=== PATIENT | female | born 1950 | race Caucasian/White ===

== ENCOUNTER 2018-06-10 00:10 | Outpatient (CLI) | payer MEDICARE, OTHER, SELFPAY ==
--- NOTE | 2018-06-10 08:30 | DI.MAMMO_ITS ---
SYMPTOM/DIAGNOSIS: SCREENING, Z12.31, ANNUAL EXAM, Z00.00 MAMMOGRAMS: Mammograms were interpreted according to the usual protocol including computer analysis with CAD system, tomosynthesis and C view imaging. Comparison is made with exams from [id number]. The breasts are composed of scattered fibroglandular densities. No suspicious masses or suspicious microcalcifications are seen. There has been no significant change. IMPRESSION: Category 1B, negative mammogram. Routine screening is recommended. Mammograms were interpreted according to the usual protocol including computer analysis with CAD system, tomosynthesis and C view imaging. BI-RADS category B. There are scattered areas of fibroglandular density.
== END 2018-06-10 00:30 ==
PROVIDERS: PCP Nurse Practitioner Family; Visit Provider Nurse Practitioner Family
DX: Z12.31 Encounter for screening mammogram for malignant neoplasm of breast (principal)
CPT/HCPCS: 77063; 77067

== ENCOUNTER 2018-07-01 11:26 | Outpatient (REF) | payer MEDICARE, OTHER, SELFPAY ==
[2018-07-01 12:36] LABS: HCT 47.2 % (36.0-46.0); HGB 15.6 g/dL (12.0-15.5); Mean Corp. HGB Concentration 33.1 g/dL (32.0-36.0); Mean Corpuscular Hemoglobin 29.8 pg (27.0-33.0); Mean Corpuscular Volume 90.1 fL (80-95); Mean Platelet Volume 11.9 fL (8.0-11.0); Platelet Count 267 x1000/uL (130-400); RBC 5.24 m/cumm (4.00-5.20); RBC Distribution Width 14.2 % (11.7-14.6); White Blood Cell Count 9.79 k/cumm (4.4-10.8)
[2018-07-01 13:43] LABS: ALT 29 U/L (12-78); AST 15 U/L (15-37); Albumin 3.8 g/dL (3.4-5.0); Alkaline Phosphatase 96 U/L (46-116); Anion Gap 9.7 mmol/L (3-11); BUN 16 mg/dL (7-18); Bilirubin, Total 0.2 mg/dL (0.2-1.0); CO2 25.3 mmol/L (21.0-32.0); Calcium 9.5 mg/dL (8.5-10.1); Chloride 104 mmol/L (98-107); Glucose 100 mg/dL (70-100); Potassium 4.1 mmol/L (3.5-5.1); Sodium 139 mmol/L (136-145); Total Protein 7.1 g/dL (6.4-8.2)
== END 2018-07-01 11:46 ==
LOC: NCHCN 11:26
PROVIDERS: PCP Nurse Practitioner Family; Visit Provider Nurse Practitioner Family
DX: R26.89 Other abnormalities of gait and mobility (principal); R42 Dizziness and giddiness
CPT/HCPCS: 80053; 85027

== ENCOUNTER 2018-07-16 01:18 | Outpatient (CLI) | payer MEDICARE, OTHER, SELFPAY ==
--- NOTE | 2018-07-16 08:30 | DI.CT_ITS ---
SYMPTOM/DIAGNOSIS: LOSS OF BALANCE, R26.89 DIZZINESS R42, ? CEREBELLAR DISEASE OR CERVICAL MYOPATHY NONCONTRAST HEAD CT: There are no prior comparison exams. There is moderate cerebral atrophy, greater in the frontal regions. There is no cerebellar atrophy. No infarct, hemorrhage or mass is seen. The ventricles are normal in size. There is no evidence of skull fracture or sinus opacification. The orbits are unremarkable. IMPRESSION: Atrophy. No acute abnormality.
--- NOTE | 2018-07-16 08:52 | MERGE_ITS ---
*[facility]* *[facility]* [address] [place] [address] Date of study: 07/16/2018 Transthoracic Echocardiography M-mode, complete 2D, complete spectral Doppler, and color Doppler *STUDY CONCLUSIONS* Summary: 1. Left ventricle: The cavity size was normal. Wall thickness was normal. Systolic function was normal. The estimated ejection fraction was 60-65%. Wall motion was normal; there were no regional wall motion abnormalities. 2. Right ventricle: The cavity size was normal. Wall thickness was normal. Systolic function was normal. *PATIENT PRESENTATION* Height: 167.6cm ((66in) ) S/D Pressure: 136 / 75 Weight: 67.1kg ((147.7lb) ) BSA: 1.78m^2 Test start time: 07:41 AM. Test stop time: 08:27 AM. PERFORMING Unknown PERFORMING [facility] ORDERING Alexus Childs Aprn REFERRING Alexus Childs Aprn HANDKERCHIEF FOLDER Alesia Joe, RT (R)(CT), [facility] *PROCEDURE DATA* Procedure information: The patient was identified by two identifiers. This study was interpreted by [facility]. Pertinent images and digital data are archived for permanent storage and are available for subsequent review. No prior study was available for comparison. Study status: Routine. Transthoracic echocardiography. M-mode, complete 2D, complete spectral Doppler, and color Doppler. A Transthoracic Echocardiogram was performed. Scanning was performed from the parasternal, apical, subcostal, and suprasternal notch acoustic windows. Images were obtained using an [id number] cardiac ultrasound machine. Image quality was adequate. Study completion: The patient tolerated the procedure well. There were no complications. History: PMH: Abnormal EKG. *CARDIAC ANATOMY* Left ventricle: The cavity size was normal. Wall thickness was normal. Systolic function was normal. The estimated ejection fraction was 60-65%. Wall motion was normal; there were no regional wall motion abnormalities. Diastolic parameters were normal for age. Aortic valve: Trileaflet; normal thickness leaflets. Mobility was not restricted. Doppler: Transvalvular velocity was within the normal range. There was no stenosis. There was no significant regurgitation. VTI ratio of LVOT to aortic valve: 0.8. Valve area (VTI): 2.3cm^2. Indexed valve area (VTI): 1.3cm^2/m^2. Peak velocity ratio of LVOT to aortic valve: 0.68. Valve area (Vmax): 2cm^2. Indexed valve area (Vmax): 1.1cm^2/m^2. Mean velocity ratio of LVOT to aortic valve: 0.73. Valve area (Vmean): 2.1cm^2. Indexed valve area (Vmean): 1.2cm^2/m^2. Mean gradient (S): 4.6mm Hg. Peak gradient (S): 8.6mm Hg. Aorta: Aortic root: The aortic root was normal in size. Ascending aorta: The ascending aorta was normal in size. Mitral valve: Structurally normal valve. Mobility was not restricted. Doppler: Transvalvular velocity was within the normal range. There was no evidence for stenosis. There was no significant regurgitation. Valve area by pressure half-time: 2.7cm^2. Indexed valve area by pressure half-time: 1.5cm^2/m^2. Left atrium: The atrium was normal in size. Right ventricle: The cavity size was normal. Wall thickness was normal. Systolic function was normal. Pulmonic valve: Doppler: Transvalvular velocity was within the normal range. There was no evidence for stenosis. There was no significant regurgitation. Peak gradient (S): 3.5mm Hg. Tricuspid valve: Structurally normal valve. Doppler: Transvalvular velocity was within the normal range. There was no evidence for stenosis. There was trivial regurgitation. Pulmonary artery: Pulmonary systolic pressure was within the normal range, in the range of 25mm Hg to 30mm Hg. Right atrium: The atrium was normal in size. Pericardium: There was no pericardial effusion. Systemic veins: Inferior vena cava: Well visualized. The vessel was patent and normal in size. The respirophasic diameter changes were in the normal range (greater than or equal to 50%). Baseline ECG: Normal sinus rhythm. Measurements Left ventricle Value Reference LV ID, ED, PLAX 4.5 cm 3.5 - 6.0 LV ID, ES, PLAX 2.8 cm 2.1 - 4.0 LV PW thickness, ED, PLAX 0.9 cm LV end-diastolic volume, 1-p A2C 32 ml LV ejection fraction, 1-p A2C 66 % LV end-diastolic volume, 1-p A4C 49 ml LV ejection fraction, 1-p A4C 52 % LV e', lateral 0.07 m/sec LV E/e', lateral 8 LV e', medial 0.064 m/sec LV E/e', medial 9 LV e', average 0.067 m/sec LV E/e', average 8 Ventricular septum Value Reference IVS thickness, ED, PLAX 0.9 cm LVOT Value Reference LVOT ID, A-P 1.9 cm LVOT area 2.9 cm^2 LVOT peak velocity, S 1 m/sec LVOT mean velocity, S 0.75 m/sec LVOT VTI, S 21.5 cm LVOT peak gradient, S 4 mm Hg LVOT mean gradient, S 2.4 mm Hg Stroke volume (SV), LVOT DP 62 ml Stroke index (SV/bsa), LVOT DP 35 ml/m^2 Aortic valve Value Reference Aortic valve peak velocity, S 1.5 m/sec Aortic valve mean velocity, S 1.02 m/sec Aortic valve VTI, S 27.0 cm Aortic mean gradient, S 4.6 mm Hg Aortic peak gradient, S 8.6 mm Hg VTI ratio, LVOT/AV 0.8 Aortic valve area, VTI 2.3 cm^2 Velocity ratio, peak, LVOT/AV 0.68 Aortic valve area, peak velocity 2 cm^2 Velocity ratio, mean, LVOT/AV 0.73 Aortic valve area, mean velocity 2.1 cm^2 Aortic valve area/bsa, mean velocity 1.2 cm^2/m^2 Aorta Value Reference Aortic root ID, ED 2.9 cm Ascending aorta ID, A-P, S 2.9 cm Left atrium Value Reference LA ID, A-P, ES 2.8 cm LA ID/bsa, A-P 1.6 cm/m^2 <=2.2 LA area, ES, A4C 16.4 cm^2 8.8 - 23.4 LA area, ES, A2C 14 cm^2 LA volume/bsa, ES, 1-p A4C 25 ml/m^2 LA volume, ES, 2-p 37 ml LA volume/bsa, ES, 2-p 21 ml/m^2 LA/aortic root ratio 0.96 Mitral valve Value Reference Mitral E-wave peak velocity 0.55 m/sec Mitral A-wave peak velocity 0.86 m/sec Mitral deceleration time (H) 278 ms 150 - 230 Mitral pressure half-time 81 ms Mitral E/A ratio, peak 0.64 Mitral valve area, PHT, DP 2.7 cm^2 Pulmonary veins Value Reference Pulmonary vein peak velocity, S 0.94 m/sec Pulmonary vein peak velocity, D 0.45 m/sec Pulmonary vein velocity ratio, peak, 2.11 S/D Pulmonary vein A-wave reversal peak 1.35 m/sec velocity Pulmonary vein A-wave reversal 141 ms duration Tricuspid valve Value Reference Tricuspid regurg peak velocity 2.4 m/sec Tricuspid peak RV-RA gradient 22.5 mm Hg Right atrium Value Reference RA area, ES, A4C 10.6 cm^2 8.3 - 19.5 Pulmonic valve Value Reference Pulmonic peak gradient, S 3.5 mm Hg Legend: (L) and (H) maverick values outside specified reference range. I have personally reviewed the images and have reviewed and edited the reported findings. Electronically signed by Huey Gasca 07/16/2018 09:06
== END 2018-07-16 01:38 ==
PROVIDERS: PCP Nurse Practitioner Family; Visit Provider Nurse Practitioner Family
DX: R94.31 Abnormal electrocardiogram [ECG] [EKG] (principal); R42 Dizziness and giddiness; R26.89 Other abnormalities of gait and mobility; G31.1 Senile degeneration of brain, not elsewhere classified
CPT/HCPCS: 93306; 70450

== ENCOUNTER 2018-09-16 09:44 | Day surgery (SDC) | payer MEDICARE, OTHER, SELFPAY ==
--- NOTE | 2018-09-15 15:24 | POEE_ITS ---
History of Present Illness Chief Complaint: Progressive decreased vision, right eye Narrative: The patient is a 68-year old lady who is pre-of the undergone cataract surgery in her left eye in 2013. She now presents with complaints of progressive decreased vision in her right eye which now measures 20/100. She is noted to have a significant nuclear and cortical cataract in the right eye. The option of cataract surgery was offered to the patient and she wished to proceed. NOTE: The Chief Complaint, HPI, Past Medical History, Past Surgical History, Family History, Social History, Medications, and complete Ophthalmic Exam with detailed Assessment and Plan have already been documented in the patient's ou tpatient ophthalmic record and are not covered again in detail here. [facility] Surgical History Status post cataract extraction and insertion of intraocular lens of left eye (Chronic 08/05/14) Social History Smoking/Tobacco Use Status: Never Meds Home Medications Medication Instructions Recorded Confirmed Type amitriptyline 50 mg PO HS tab-cap 05/30/16 09/10/18 History amlodipine 10 mg PO DAILY tab-cap 05/30/16 09/10/18 History aspirin 81 mg PO DAILY tab-cap 05/30/16 09/10/18 History simvastatin 20 mg PO QPM 09/10/18 09/10/18 History spironolactone 1.5 tab PO DAILY 09/10/18 09/10/18 History Allergies Allergy/AdvReac Type Severity Reaction Status Date / Time No Known Allergies Allergy Unverified 05/30/16 10:51 Exam OCULAR EXAM:: Most recent ocular examination shows best corrected vision of 20/50 right eye, 20/20 left eye. Intraocular pressure is 14 OD. Extraocular motility is normal. Pupils equal, round, and reactive without afferent pupillary defect. Slit-lamp examination shows pupils dilating to 6 mm OU. 2-3+ nuclear with 1+ cortical cataract OD. There is a well-positioned PCIOL OS with clear posterior capsule. Dilated funduscopic examination shows disc cupping of 0.35 OD 0.25 OS with good color. The retinal vasculature is normal. There are some mild RPE changes OU. There is a choroidal nevus inferiorly in the left eye. Peripheral retina is otherwise normal. BRIGHTNESS ACUITY TESTING (BAT):: Brightness acuity testing of the right eye off is 20/50. Low is 20/80. Medium is 20/100. High is 20/200. Assessment and Plan (1) Nuclear sclerotic cataract of right eye: Current visit: No Status: Acute Assessment: Visually significant cataract, right eye. Plan: Cataract extraction with intraocular lens implantation, right eye (2) Cortical cataract of right eye: Current visit: No Status: Acute Assessment: Visually significant cataract, right eye. Plan: Cataract extraction with intraocular lens implantation, right eye Note: NOTE:: The details of the planned surgery, including the risks, indications,limitations,expectations,outcome and possible complications were explained to the patient. The patient understands the complications including, but not limited to: infection, hemorrhage, posterior dislocation of the lens or nuclear fragments which may require the intervention of a vitreoretinal surgeon, possible loss of the eye, or from anesthetic complications. The patient has been made aware of the option of not having surgery, that vision following surgery may not be equal to that prior to surgery, and that the planned surgery may not achieve the intended results. Following this discussion, which the patient appeared to understand, the patient wishes to proceed with cataract surgery with lens implantation of the affected eye to improve and maximize vision.
--- NOTE | 2018-09-15 15:25 | PDOC.DSDIS_ITS ---
Discharge Plan Discharge Details Attending Provider: Avila Petersen Primary Care Provider: Tomy Barnard [place] Meds and New Rx's Prescriptions: No Action amitriptyline 50 MG tablet 50 mg PO HS RF: 0 amlodipine 10 MG tablet 10 mg PO DAILY RF: 0 aspirin 81 MG tablet,chewable 81 mg PO DAILY RF: 0 simvastatin 20 mg Tablet 20 mg PO QPM RF: 0 spironolactone 50 mg Tablet 1.5 tab PO DAILY RF: 0 meclizine 25 mg Tablet 1 tab PO DAILY RF: 0 Discharge Instructions Stand Alone Forms: Post-op Topical Cataract, Alejandra Amaya (DSU) DS: Diagnosis Discharge Diagnosis (1) Status post cataract extraction and insertion of intraocular lens of right eye: Status: Chronic
--- NOTE | 2018-09-15 15:25 | W.PM.OP ---
Date of service: 09/16/18 Time of Service: 13:22 Operative Note PRE-OP DIAGNOSIS: Cataract, right eye PROCEDURE: Cataract extraction using phacoemulsification with intraocular lens implant, right eye SURGEON: Avila Petersen ANESTHESIA: MAC and local (sub-tenon's anesthetic infiltration) ESTIMATED BLOOD LOSS: 0 PATHOLOGY: none sent COMPLICATIONS: None Patient was transported to: same day Patient's condition: stable Implants: Fermin [employer] / [employer] Tecnis [id number] intraocular lens Indications: Progressive decreased vision due to cataract, right eye Procedure Description: CATARACT SURGERY OPERATIVE REPORT PREOPERATIVE DIAGNOSIS: Nuclear/cortical cataract, right eye POSTOPERATIVE DIAGNOSIS: Same OPERATION: Cataract extraction using phacoemulsification with posterior chamber intraocular lens implant, right eye. IOL: IOL Steel Die Press Set Up Operator/Model: [employer] / MIKE Tecnis ZCB00 IOL Power: + 23.5 diopters IOL Serial Number: [id number] Optic Diameter: 6.0mm Haptic/Overall Diameter: 13.0mm PHACO INFO: Jose [employer] Vision System with OZil and Active [employer]uidics Cumulative Dispersed Energy (CDE): 17.51 seconds SURGEON: Avila Petersen MD, DWAYNE ANESTHESIA: Monitored Anesthesia Care (MAC), with local sub-tenon's anesthetic infiltration COMPLICATIONS: None SPECIMENS: None INDICATIONS FOR PROCEDURE: Patient is a 68-year old lady who has previously undergone cataract surgery in the left eye in 2013. She has done well postoperatively with uncorrected vision of 20/20 in the left eye. She has now developed a symptomatic nuclear and cortical cataract in the right eye and desires cataract surgery there and attempt to improve and maximize her vision. PROCEDURE: The correct surgical eye was identified and marked as the right eye and the pupil was dilated in the preoperative area using mydriatics and cycloplegics. The dilated pupil size was 6.0 mm. Oral sedation was administered in the form of an Imprimis MKO Melt (midazolam 3mg/ketamine 25mg/ondansetron 2mg). The patient was brought to the operating room where cardiopulmonary monitoring was instituted and surgical time-out was performed, confirming the correct operative eye and IOL power. Topical anesthesia was administered and ophthalmic povidone-iodine 5% was instilled into the conjunctival fornices. Lidocaine gel was applied to the cornea and the sonido-ocular area was prepped with Betadine 10% solution and draped in the usual sterile fashion for intraocular surgery, including an aperture drape. A Tegaderm transparent film dressing was cut in half and used to cover the lashes and lid margins. Care was taken to sequester the lashes and lid margins under the Tegaderm dressing. A lid speculum was placed between the lids of the operative eye and the Dev-Donna operating microscope was maneuvered into position. Gavi scissors were then used to make a conjunctival buttonhole approximately 6mm posterior to the limbus in the inferonasal quadrant. Blunt dissection was carried out to expose bare sclera, and a blunt-tipped sub-tenon?s anesthesia cannula was introduced and passed posteriorly along the globe where non-preserved plain lidocaine was injected into posterior sub-Tenon?s space. A sideport knife was used to make a paracentesis port inferiortemporally, and the anterior chamber was filled with Healon GV. A 2.4mm keratome knife was used to create a half-thickness groove at the limbus and then to construct a three-plane near-clear corneal tunnel extending 2.0mm into clear cornea in the superiortemporal position. . A flap was raised on the anterior capsule and capsulorhexis forceps were used to complete a continuous curvilinear capsulorhexis of 5.0 mm. Balanced salt solution was then used to perform cortical cleaving hydrodissection and nuclear hydrodelineation until the lens could be freely rotated within the capsular bag. The lens nucleus was then disassembled and removed within the capsular bag and iris plane using phacoemulsification. The pupil constricted to 3 mm during phacoemulsification, making visualization difficult, Residual cortical material was removed using the 45-degree angled silicone I/A tip with 0.3mm port. The posterior capsule was carefully polished to remove as much residual lens epithelial cells as safely possible. The capsular bag was then inflated and the anterior chamber deepened with viscoelastic. The lens implant described above was inserted into the capsular bag using the MIKE [place] Injector. A Kuglen hook was used to dial the IOL into position. Residual viscoelastic was then removed first from posterior to the IOL, then from the anterior chamber using the I/A handpiece. The lens implant was noted to center nicely within the capsular bag. The incisions were stromally hydrated, and the anterior chamber was reformed using BSS. Then 0.4cc of moxifloxacin 1.5mg/ml were injected into the capsular bag and anterior chamber. The incisions were checked with a Weck spear and found to be secure. Several drops of ophthalmic povidone-iodine 5% were then applied to the eye followed by two drops of Imprimis combination moxifloxacin/dexamethasone solution. The drapes were removed and a clear plastic protective eye shield was placed over the eye. The patient was then returned to Same Day Surgery in stable condition.
[2018-09-16 10:18] VITALS: BP 147/82; PULSE 105; RESP 18; TEMP 36.4; O2SAT 97
[2018-09-16] MEDS: Tetracaine 0.5% 4 ML BTL OD ×4 (10:26→12:37)
[2018-09-16] MEDS: Tropicam./Phenyleph. (1/2.5%) 5 ML BTL OD ×3 (10:26→10:37)
[2018-09-16] MEDS: Lidocaine 2% Jelly 6 ML SYR (12:37)
[2018-09-16] MEDS: Lidocaine 1% Pres-Free 5 ML VIAL (12:42)
[2018-09-16] MEDS: Balanced Salt Soln.-PLUS 500 ML BAG (12:42)
[2018-09-16] MEDS: Povidone-Iodine Ophth 30 ML BTL (12:51)
[2018-09-16 13:41] VITALS: BP 135/79; PULSE 92; RESP 16; TEMP 35.9; O2SAT 98
== END 2018-09-16 13:58 | disposition home or self-care (01) ==
LOC: SUR 09:45
PROVIDERS: PCP Family Medicine; Visit Provider Ophthalmology
PROC: (CPT 66984; principal; 2018-09-16 12:30)
DX: H25.811 Combined forms of age-related cataract, right eye (principal); I10 Essential (primary) hypertension
CPT/HCPCS: 66984; V2632

== ENCOUNTER 2019-02-24 11:30 | Outpatient (CLI) | payer MEDICARE, OTHER, SELFPAY ==
[2019-02-24 12:51] LABS: HCT 47.6 % (36.0-46.0); HGB 15.9 g/dL (12.0-15.5); Mean Corp. HGB Concentration 33.4 g/dL (32.0-36.0); Mean Corpuscular Hemoglobin 29.8 pg (27.0-33.0); Mean Corpuscular Volume 89.1 fL (80-95); Mean Platelet Volume 11.3 fL (8.0-11.0); Platelet Count 299 x1000/uL (130-400); RBC 5.34 m/cumm (4.00-5.20); RBC Distribution Width 13.8 % (11.7-14.6)
[2019-02-24 13:23] LABS: ALT 37 U/L (12-78); AST 18 U/L (15-37); Alkaline Phosphatase 108 U/L (46-116); Anion Gap 12.5 mmol/L (3-11); BUN 16 mg/dL (7-18); Bilirubin, Total 0.3 mg/dL (0.2-1.0); CO2 22.5 mmol/L (21.0-32.0); Calcium 9.5 mg/dL (8.5-10.1); Chloride 103 mmol/L (98-107); Glucose 101 mg/dL (70-100); Potassium 4.6 mmol/L (3.5-5.1); Sodium 138 mmol/L (136-145); TSH (W/Ref FT4) 1.29 uIU/mL (0.358-3.74); Total Protein 7.7 g/dL (6.4-8.2)
[2019-02-24 14:21] LABS: ESR 13 MM/HR (0-30)
[2019-02-24 20:11] LABS: Bilirubin Negative (Negative); Blood Trace-intact (Negative); Clarity Clear (Clear); Glucose Negative (Negative); Ketones Negative (Negative); Leukocyte Esterase Negative (Negative); Nitrite Negative (Negative); Urobilinogen 0.2 EU/dL (Up TO 0.2)
[2019-02-24 21:40] LABS: Bacteria Negative HPF (Negative); C & S Indicated? No; Casts Negative LPF (Negative); Crystals Negative HPF (Negative); Epithelial Cells Rare HPF (Negative); Mucus Negative (Negative); Other Cells Negative (Negative); RBC 0-2 (0-2); WBC Negative HPF (0-5)
== END 2019-02-24 11:50 ==
PROVIDERS: PCP Family Medicine; Visit Provider Nurse Practitioner Family
DX: R42 Dizziness and giddiness (principal); R79.89 Other specified abnormal findings of blood chemistry; C64.2 Malignant neoplasm of left kidney, except renal pelvis; I10 Essential (primary) hypertension
CPT/HCPCS: 36415; 80053; 85027; 85652; 81003; 81015; 84443

== ENCOUNTER 2019-05-08 08:55 | Outpatient (CLI) | payer MEDICARE, OTHER, SELFPAY ==
[2019-05-08 09:33] LABS: HCT 49.5 % (36.0-46.0); HGB 16.3 g/dL (12.0-15.5); Mean Corp. HGB Concentration 32.9 g/dL (32.0-36.0); Mean Corpuscular Hemoglobin 29.7 pg (27.0-33.0); Mean Corpuscular Volume 90.2 fL (80-95); Mean Platelet Volume 10.7 fL (8.0-11.0); Platelet Count 290 x1000/uL (130-400); RBC 5.49 m/cumm (4.00-5.20); RBC Distribution Width 14.3 % (11.7-14.6); White Blood Cell Count 9.15 k/cumm (4.4-10.8)
== END 2019-05-08 09:15 ==
PROVIDERS: PCP Family Medicine; Visit Provider Nurse Practitioner Family
DX: L53.8 Other specified erythematous conditions (principal); I10 Essential (primary) hypertension
CPT/HCPCS: 36415; 85027

== ENCOUNTER 2019-07-11 07:12 | Outpatient (CLI) | payer MEDICARE, OTHER, SELFPAY ==
[2019-07-11 08:06] LABS: HCT 46.7 % (36.0-46.0); HGB 15.6 g/dL (12.0-15.5); Mean Corp. HGB Concentration 33.4 g/dL (32.0-36.0); Mean Corpuscular Volume 89.8 fL (80-95); Mean Platelet Volume 10.1 fL (8.0-11.0); Platelet Count 331 x1000/uL (130-400); RBC Distribution Width 13.9 % (11.7-14.6); White Blood Cell Count 9.37 k/cumm (4.4-10.8)
[2019-07-11 08:43] LABS: Absolute Basophil Count 0.09 k/cumm (0.0-0.2); Absolute Eosinophil Count 0.09 k/cumm (0.0-0.7); Absolute Lymphocyte Count 5.34 k/cumm (1.2-3.4); Absolute Monocyte Count 0.94 k/cumm (0.11-0.7); Atypical Lymphocytes % 19; Diff Comment Manual Differential; RBC Morphology Normal
== END 2019-07-11 07:32 ==
PROVIDERS: PCP Family Medicine; Visit Provider Internal Medicine Hematology
DX: D75.1 Secondary polycythemia (principal)
CPT/HCPCS: 0027U; 36415; 85025

== ENCOUNTER 2020-05-07 03:45 | Outpatient (CLI) | payer MEDICARE, OTHER, SELFPAY ==
--- NOTE | 2020-05-07 | DI.US_ITS ---
EXAM: US THYROID CLINICAL HISTORY: CHRONIC FATIGUE, R53.83, neck swelling TECHNIQUE: Ultrasound performed using standard protocol. COMPARISON: US Cardiac from 07/16/2018 FINDINGS: Thyroid ultrasound was performed according to the usual protocol. Right thyroid lobe measures 58 x 2 1 x 19 millimeters. Left lobe measures 57 x 12 x 15 millimeters. There are multiple small thyroid n odules. The 3 largest nodules are evaluated. Nodule in the lower pole of the left thyroid lobe aura ures about 12 millimeters in diameter and is solid and hypoechoic with macrocalcification and lobulat ed margin. This is a TR 5 lesion TI-RADS classification, highly suspicious, fine needle aspiration r ecommended for size greater than or equal to 1 cm. The next 2 largest lesions are in the right thyroid lobe and have benign appearance with TR 2 and TR 1 classifications IMPRESSION: Highly suspicious 12 millimeter left thyroid lobe lower pole nodule as described above. Fine needle aspiration recommended. DATA REPOSITORY:
== END 2020-05-07 04:05 ==
PROVIDERS: PCP Family Medicine; Visit Provider Nurse Practitioner Family
DX: E04.2 Nontoxic multinodular goiter (principal)
CPT/HCPCS: 76536

== ENCOUNTER 2020-10-22 19:31 | Outpatient (REF) | payer MEDICARE, OTHER, SELFPAY ==
[2020-10-22 16:50] LABS: ALT 48 U/L (14-59); AST 20 U/L (15-37); Albumin 4.2 g/dL (3.4-5.0); Alkaline Phosphatase 90 U/L (46-116); Anion Gap 12.4 mmol/L (3-11); BUN 21 mg/dL (7-18); Bilirubin, Total 0.2 mg/dL (0.2-1.0); CO2 24.6 mmol/L (21.0-32.0); Calcium 9.9 mg/dL (8.5-10.1); Calculated LDL 123 mg/dL (<100); Chloride 104 mmol/L (98-107); Cholesterol 205 mg/dL (<200); Estimated GFR 54.66 (mL/min/1.73m2); Glucose 102 mg/dL (74-106); HDL Cholesterol 40 mg/dL (40-60); Potassium 4.6 mmol/L (3.5-5.1); Sodium 141 mmol/L (136-145); TSH (W/Ref FT4) 0.84 uIU/mL (0.36-3.74); Total Protein 7.8 g/dL (6.4-8.2); Triglyceride 214 mg/dL (<150)
[2020-10-22 18:40] LABS: Abs Immature Grans 0.03 10^3/uL (0.0-0.06); Absolute Basophil Count 0.09 10^3/uL (0.0-0.2); Absolute Eosinophil Count 0.11 10^3/uL (0.0-0.7); Absolute Lymphocyte Count 5.02 10^3/uL (1.2-3.4); Absolute Monocyte Count 0.51 10^3/uL (0.1-0.8); Absolute Neutrophil Count 3.51 10^3/uL (1.2-6.7); Eosinophils % 1.2; HCT 49.9 % (36.0-46.0); HGB 16.3 g/dL (11.2-15.7); Immature Grans % 0.3; Lymphocytes % 54.2; MCH 30.6 pg (27.0-33.0); MCHC 32.7 % (32.0-36.0); MCV 93.8 fL (80-95); MPV 11.7 fL (8.0-11.0); Monocytes % 5.5; Neutrophils % 37.8; Nucleated RBC 0 %; RBC 5.32 10^6/uL (3.93-5.22); RDW 13.1 % (11.7-14.6); WBC 9.27 10^3/uL (4.4-10.8)
[2020-10-22 19:31] LABS: Diff Comment Agrees w/ Instrument; RBC Morphology Normal
[2020-11-04 15:02] LABS: Platelet Count 273 10^3/uL (130-400)
== END 2020-10-22 19:32 | disposition home or self-care (01) ==
LOC: NCHCN 19:31
PROVIDERS: PCP Family Medicine; Visit Provider Nurse Practitioner Family
DX: E04.2 Nontoxic multinodular goiter (principal); R79.89 Other specified abnormal findings of blood chemistry; D75.1 Secondary polycythemia; C95.10 Chronic leukemia of unspecified cell type not having achieved remission; L53.8 Other specified erythematous conditions; R53.83 Other fatigue
CPT/HCPCS: 80053; 80061; 84443; 85025

== ENCOUNTER 2020-11-02 08:58 | Outpatient (RCR) | payer MEDICARE, OTHER, SELFPAY ==
--- NOTE | 2020-11-02 10:30 | HOLTER_ITS ---
APPROVED REPORT Exam Type: HOLTER MONITOR APPLICATION Reason for Test: tachycardia Patient Location: O Conclusion This was a 48-hour Holter monitor Rhythm throughout was sinus with an average heart rate of 85. Minimum was 63, maximum 151 There were very rare atrial and ventricular ectopic beats. There was one 5 beat self-limited atrial run There was no atrial fibrillation, no pauses greater than 3 seconds, no high-grade AV block No patient symptoms were reported
== END 2020-11-17 23:59 | disposition home or self-care (01) ==
LOC: RT 08:58
PROVIDERS: PCP Family Medicine; Visit Provider Family Medicine
DX: R00.0 Tachycardia, unspecified (principal); I49.1 Atrial premature depolarization
CPT/HCPCS: 93227; 93225; 93226

== ENCOUNTER 2020-12-15 03:37 | Outpatient (CLI) | payer MEDICARE, OTHER, SELFPAY ==
[2020-12-15 09:23] LABS: Hemoglobin A1C 5.8 % (<5.7)
[2020-12-16 04:24] LABS: Vitamin D 25 Total 49.4 ng/mL (30-100)
== END 2020-12-15 03:38 | disposition home or self-care (01) ==
PROVIDERS: PCP Family Medicine; Visit Provider Student in an Organized Health Care Education/Training Program
DX: E55.9 Vitamin D deficiency, unspecified (principal); R73.9 Hyperglycemia, unspecified
CPT/HCPCS: 36415; 82306; 83036

== ENCOUNTER 2021-01-11 01:46 | Outpatient (CLI) | payer MEDICARE, OTHER, SELFPAY ==
--- NOTE | 2021-01-11 12:40 | DI.MAMMO_ITS ---
Exam(s) MAMMO SCREENING EXAM: MAMMO SCREENING CLINICAL HISTORY: BREAST CANCER SCREENING MAMMO Z12.31 TECHNIQUE: Mammograms were interpreted according to the usual protocol including computer analysis w ith CAD system, tomosynthesis and C-view imaging. COMPARISON: 2011 through 2017 FINDINGS: The breasts are composed of scattered fibroglandular densities, Breast Density category B. No suspicious masses or suspicious microcalcifications are seen. No skin thickening or abnormal axillary lymph nodes are seen. There has been no significant change from prior exams. IMPRESSION: BI-RADS Category 1, Negative mammogram Yearly screening mammography is recommended. Breast Density - Category B, scattered fibroglandular densities. A negative radiographic report should not delay biopsy if a dominant or clinically suspicious mass is present. Up to ten percent of cancers are not identified on mammography. A negative report may reinforce clinical impression. Adenosis and dense breasts may obscure an underlying neoplasm. False positive reports average 6 to 10%. Patient will receive a letter notifying them of these results.
== END 2021-01-11 02:06 ==
PROVIDERS: PCP Family Medicine; Visit Provider Internal Medicine
DX: Z12.31 Encounter for screening mammogram for malignant neoplasm of breast (principal)
CPT/HCPCS: 77063; 77067

== ENCOUNTER 2021-02-08 01:53 | Outpatient (CLI) | payer MEDICARE, OTHER, SELFPAY ==
--- NOTE | 2021-02-08 | DI.DEXA_ITS ---
Exam(s) XR DEXA BONE DENSITY W/WO ELIUD EXAM: XR DEXA BONE DENSITY W/WO ELIUD CLINICAL HISTORY: VITAMIN D DEFICIENCY,E55.9,SCREENING FOR OSTEOPOROSIS IN POSTOMENOPAUSAL TECHNIQUE: Routine DEXA evaluation of the lumbar spine, hip, or forearm. COMPARISON: No exams were available for comparison FINDINGS: Performed on a Hologic unit. Lateral image: No compression fracture evident. Lumbar Spine total T-score: -2.6 Hip total T-score:-2.5 Independent reading at the femoral neck yields a T-score -2.8 Forearm total T-score: -0.9 IMPRESSION: Bone mineral density measures in the osteoporosis range. Fracture risk is high. Note: Any spine fracture indicates 5x risk for subsequent spine fracture and 2x risk for subsequent h ip fracture. World Health Organization criteria for BMD interpretation classify patients: Normal...... T- Score at or above -1.0 Osteopenic... T- Score between -1.0 and -2.5 Osteoporosis... T-Score at or below -2.5
== END 2021-02-08 02:13 ==
PROVIDERS: PCP Family Medicine; Visit Provider Internal Medicine
DX: Z13.820 Encounter for screening for osteoporosis (principal); E55.9 Vitamin D deficiency, unspecified; Z78.0 Asymptomatic menopausal state
CPT/HCPCS: 77080

== ENCOUNTER 2022-10-18 01:42 | Outpatient (CLI) | payer MEDICARE, SELFPAY ==
--- NOTE | 2022-10-18 08:09 | DI.MAMMO_ITS ---
Exam(s) MAMMO SCREENING EXAM: MAMMO SCREENING CLINICAL HISTORY: BREAST CANCER SCREEING Z12.31 TECHNIQUE: Bilateral full field digital CC and MLO mammographic images were obtained with 3D tomosyn thesis and utilizing computer aided detection (CAD). COMPARISON: Available for comparison. FINDINGS: Masses/Architectural Distortion: None seen. Microcalcifications: No suspicious pleomorphic-type are seen. Skin Thickening/Nipple Retraction: None. IMPRESSION: 1. No significant interval change with no specific features of malignancy noted. 2. Unless there is more urgent need, screening mammography is recommended, as per [place] [employer] guidelines. BI-RADS Category 1 - Negative Breast Density - Category B - Scattered areas of fibroglandular density Breast density category C or D implies that the patient has dense breast tissue. Dense breast tissue is very common and is not abnormal but dense breast tissue can make it harder to find cancer on a ma mmogram. Also, dense breast tissue may increase their breast cancer risk. This information about the result of the mammogram report was provided to the patient to raise their awareness. Use this report when you speak with the patient about their risks for breast cancer, which includes their family hist ory. At that time, you may recommend for more screening tests (Ultrasound or MRI) as they might be us eful based on their risk. A negative radiographic report should not delay biopsy if a dominant or clinically suspicious mass is present. Up to ten percent of cancers are not identified on mammography. A negative report may reinforce clinical impression. Adenosis and dense breasts may obscure an underlying neoplasm. False positive reports average 6 to 10%. Patient will receive a letter notifying them of these results.
== END 2022-10-18 02:02 ==
PROVIDERS: PCP Family Medicine; Visit Provider Internal Medicine
DX: Z12.31 Encounter for screening mammogram for malignant neoplasm of breast (principal)
CPT/HCPCS: 77063; 77067

== ENCOUNTER → 2023-12-13 03:46 | Outpatient (CLI) | payer MEDICARE, SELFPAY ==
--- NOTE | 2023-12-13 | DI.MAMMO_ITS ---
Exam(s) MAMMO SCREENING EXAM: MAMMO SCREENING CLINICAL HISTORY: SCREENING, Z12.31. TECHNIQUE: Bilateral full field digital CC and MLO mammographic images were obtained with 3D tomosyn thesis and utilizing computer aided detection (CAD). COMPARISON: Prior mammograms were reviewed. FINDINGS: There has been no significant change in the appearance and distribution of the fibroglandular tissue. There are no CAD designations. There are no new spiculated masses nor malignant appearing microcalcification groups. There is no significant architectural distortion nor skin thickening-retraction. IMPRESSION: No radiographic evidence of malignancy. BI-RADS Category 1 - Negative Breast Density - Category B - Scattered areas of fibroglandular density Breast density Category C or D implies that the patient has dense breast tissue. Dense breast tissue can make it harder to find cancer on a mammogram. Dense breast tissue is also associated with an incr eased risk of breast cancer. This information about the result of the mammogram report was provided to the patient to raise their awareness. Use this report when you speak with the patient about their risks for breast cancer, which includes their family history. At that time, you may recommend additional screening tests (Ultrasoun d or MRI) as these tests may add significant information. A negative radiographic report should not delay biopsy if a dominant or clinically suspicious mass is present. Up to ten percent of cancers are not identified on mammography. A negative report may reinforce clinical impression. Adenosis and dense breasts may obscure an underlying neoplasm. False positive reports average 6 to 10%. Patient will receive a letter notifying them of these results.
--- NOTE | 2023-12-13 | DI.DEXA_ITS ---
Exam(s) XR DEXA BONE DENSITY W/WO ELIUD EXAM: XR DEXA BONE DENSITY W/WO ELIUD CLINICAL HISTORY: OSTEOPOROSIS,M81.0 TECHNIQUE: Routine DEXA evaluation of the lumbar spine, hip, or forearm. COMPARISON: CT ABD/PELVIS WO W CONTRAST from 05/31/2016 CR XR DEXA BONE DENSITY W/WO ELIUD from 02/08/2021 FINDINGS: Performed on a Hologic unit. Lateral image: No compression fracture evident. Incidentally noted is degenerative anterolisthesis L 4 upon L5 mild disc space narrowing at this level. This was also evident on an abdominal CT scan of 2015. Lumbar Spine total T-score: -1.6. Prior reading in January 2021 was -2.6 Hip total T-score:-2.3. Prior reading in 2020 was -2.5 Independent reading at the level of the femoral neck yields T-score of -2.4 Forearm total T-score: -1.0. Prior reading of 2020 was also -1.0 IMPRESSION: Bone mineral density measures in the osteopenia range. There has been some improvement when compared to 2020 readings. Fracture risk remains moderate. Note: Any spine fracture indicates 5x risk for subsequent spine fracture and 2x risk for subsequent h ip fracture. World Health Organization criteria for BMD interpretation classify patients: Normal...... T- Score at or above -1.0 Osteopenic... T- Score between -1.0 and -2.5 Osteoporosis... T-Score at or below -2.5
== END ==
PROVIDERS: PCP Family Medicine; Visit Provider Student in an Organized Health Care Education/Training Program
DX: M81.0 Age-related osteoporosis without current pathological fracture (principal); Z12.31 Encounter for screening mammogram for malignant neoplasm of breast; Z13.820 Encounter for screening for osteoporosis
CPT/HCPCS: 77063; 77067; 77080

== ENCOUNTER 2024-04-26 11:18 | Emergency (ER) | payer MEDICARE, SELFPAY ==
[2024-04-26 11:20] VITALS: BP 170/93; PULSE 103; RESP 18; TEMP 36.3; O2SAT 98
--- NOTE | 2024-04-26 11:57 | ED.GENADUL_ITS ---
Discharge Plan Disposition Patient Disposition: Home Condition: Stable Discharge Details Clinical Impression: Furuncle Primary Care Provider: Unknown,Unknown ED Provider: Avila Wong Home Meds and New Rx's Prescriptions: New clindamycin HCl 300 mg capsule 300 mg PO TID 5 Days Qty: 15 0RF No Action amitriptyline 50 MG tablet 50 mg PO HS amlodipine 10 MG tablet 10 mg PO DAILY aspirin 81 MG tablet,chewable 81 mg PO DAILY simvastatin 20 mg Tablet 20 mg PO QPM spironolactone 50 mg Tablet 1.5 tab PO DAILY Discharge Instructions Instructions: Boil, Adult ED Additional Instructions: Please continue with warm compresses acetaminophen and ibuprofen as needed for discomfort, take antibiotics as prescribed. Please return to the emergency dep artment for any worsening symptoms. Follow-up close with your primary care physician HPI General Date/Time Provider Initiated Documentation: 04/26/24 11:29 . HPI Narrative: 74-year-old female history of leukemia not on chemotherapy or radiation presents with painful raised lesion to the skin of her left lateral posterior neck denies fevers chills nausea vomiting or systemic signs of illness. Denies trauma. Related Data Home Medications ?Medication ?Instructions ?Recorded ?Confirmed amitriptyline 50 mg tablet 50 mg PO HS 05/30/16 04/26/24 amlodipine 10 mg tablet 10 mg PO DAILY 05/30/16 04/26/24 aspirin 81 mg chewable tablet 81 mg PO DAILY 05/30/16 04/26/24 simvastatin 20 mg tablet 20 mg PO QPM 09/10/18 04/26/24 spironolactone 50 mg tablet 1.5 tab PO DAILY 09/10/18 04/26/24 clindamycin HCl 300 mg capsule 300 mg PO TID 5 days #15 caps 04/26/24 Previous Rx's ?Medication ?Instructions ?Recorded clindamycin HCl 300 mg capsule 300 mg PO TID 5 days #15 caps 04/26/24 Allergies Allergy/AdvReac Type Severity Reaction Status Date / Time No Known Allergies Allergy Verified 04/26/24 11:26 General Stated Complaint: RashLesion MILA: 4 Exam Narrative Exam Narrative: 1 cm raised area of induration and erythema with central purulent head consistent with localized furuncle, nonfluctuant; some area of surrounding erythema, no crepitus; lesion located posterior lateral left neck No palpable lymph nodes Tolerating secretions normal voice Submandibular submental space soft not indurated No respiratory distress Course Vital Signs Vital signs: Vital Signs Temperature 36.3 C L 04/26/24 11:20 Pulse 103 H 04/26/24 11:20 Respiratory Rate 18 04/26/24 11:20 Blood Pressure 170/93 H 04/26/24 11:20 Pulse Oximetry 98 04/26/24 11:20 Temperature 36.3 C L 04/26/24 11:20 Temperature Source Tympanic 04/26/24 11:20 Pulse 103 H 04/26/24 11:20 Respiratory Rate 18 04/26/24 11:20 Respiratory Effort Normal 04/26/24 11:27 Blood Pressure 170/93 H 04/26/24 11:20 Pulse Oximetry 98 04/26/24 11:20 Oxygen Delivery Method Room Air 04/26/24 11:20 Oxygen Flow Rate 0 04/26/24 11:20 Pain Level 5 04/26/24 11:20 Medical Decision Making 74-year-old female history of leukemia, not on chemotherapy not on radiation, presents with 1 cm raised area of induration and erythema with central purulent head consistent with localized furuncle, nonfluctuant; some area of surrounding erythema, no crepitus; lesion located posterior lateral left neck; no systemic signs of illness. Consider hypertension tachycardia related to discomfort. Low suspicion for deep space infection of head or neck no evidence of suppurative lymph nodes. Low suspicion for septic thrombophlebitis of internal jugular. Patient requesting incision and drainage. Will apply L ET gel, will perform incision and attempt to express purulent material. Will initiate clindamycin. 13: 27 for alcohol anesthetized with LET gel, shallowly incised with an 11 blade, no purulent material has been expressed. 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
[2024-04-26] MEDS: Clindamycin 300 MG CAP PO (12:14)
[2024-04-26] MEDS: Lidocaine/Epinephri/Tetracaine Topical Gel 3 ML TP (12:14)
[2024-04-26 13:15] VITALS: PULSE 87; RESP 16; O2SAT 99
== END 2024-04-26 13:55 | disposition home or self-care (01) ==
PROVIDERS: Emergency Provider Emergency Medicine
DX: H60.02 Abscess of left external ear (principal); Z79.82 Long term (current) use of aspirin; Z85.6 Personal history of leukemia
CPT/HCPCS: 10060; 99283

== ENCOUNTER 2024-05-01 13:20 | Outpatient (CLI) | payer MEDICARE, SELFPAY ==
--- NOTE | 2024-05-01 14:30 | DI.US_ITS ---
Exam(s) US SOFT TISSUE HEAD OR NECK EXAM: US SOFT TISSUE HEAD OR NECK CLINICAL HISTORY: SOFT TISSUE ABSCESS L02.91 CONCERN FOR ONGOING INFECTION. TECHNIQUE: Ultrasound was performed using standard protocol. COMPARISON: No exams were available for comparison FINDINGS: Sonographic assessment utilizing grayscale and color Doppler imaging was performed and targeted to th e area of clinical concern. There is no evidence of a drainable fluid collection or abscess. Multiple small lymph nodes are noted, largest measuring 1 cm. No suspicious lymph nodes. IMPRESSION: No evidence of abscess. DATA REPOSITORY:
== END 2024-05-01 13:40 ==
PROVIDERS: Visit Provider Student in an Organized Health Care Education/Training Program
DX: L02.91 Cutaneous abscess, unspecified (principal)
CPT/HCPCS: 76536

== ENCOUNTER 2025-06-15 00:29 | Outpatient (RCR) | payer MEDICARE, SELFPAY | END 2025-06-19 23:59 | disposition home or self-care (01) | LOC: INF 00:29 | PROVIDERS: Visit Provider Student in an Organized Health Care Education/Training Program | DX: Z53.8 Procedure and treatment not carried out for other reasons (principal) | CPT/HCPCS: 99195 ==